=== PATIENT | male | born 1965 | race Caucasian/White ===

== ENCOUNTER 2017-01-21 10:15 | Day surgery (SDC) | payer BC ==
[~2017-01-21 10:15] MED LIST: Lactated Ringers 1,000 ML IV SCH; Propofol 200 MG/20 ML SDV ONE; Sodium Chloride 0.9% 5 ML Syringe FLUSH PRN
--- NOTE | 2017-01-21 11:15 | PCM.PN ---
- General Info Date of Service: 01/21/17 - Review of Systems Systems Review Comment:: 51 y/o male with history of rectal bleeding here for his initial colonoscopy. He is medically stable to proceed. Risks such as but not limited to bleeding and GI injury discussed and he agrees to proceed. - Patient Data Vitals - Most Recent: Last Vital Signs Temp 98.2 F 01/21/17 10:29 Pulse 84 01/21/17 10:29 Resp 18 01/21/17 10:29 BP 120/75 01/21/17 10:29 Pulse Ox 95 01/21/17 10:29 Weight - Most Recent: 127.006 kg Med Orders - Current: Current Medications Lactated Ringer's (Ringers, Lactated) 1,000 mls @ 50 mls/hr IV ASDIRECTED RICARDO Last Admin: 01/21/17 10:39 Dose: 50 mls/hr Sodium Chloride (Syrex Flush) 5 ml FLUSH Q8HR PRN PRN Reason: Keep Vein Open Discontinued Medications Propofol (Diprivan 20 Ml) Confirm Administered Dose 400 mg .ROUTE .STK-MED ONE Stop: 01/21/17 09:58 - Problem List Review Problem List Initiated/Reviewed/Updated: Yes - My Orders Last 24 Hours: My Active Orders 01/21/17 10:00 Patient to Empty Bladder [RC] ASDIRECTED Peripheral IV Care [RC] . DIRECTED Verify Patient Consent Obtain [RC] ASDIRECTED Lactated Ringers [Ringers, Lactated] 1,000 ml IV ASDIRECTED Sodium Chloride 0.9% [Syrex Flush] 5 ml FLUSH Q8HR PRN Peripheral IV Insertion Adult [OM.PC] Routine 01/21/17 Breakfast Nothing Per Oral Diet [DIET] - Assessment Assessment:: Rectal Bleeding - Plan Plan:: Colonoscopy
[2017-01-21] MEDS ORDERED: Propofol 200 MG/20 ML SDV IV ONE (11:19)
[2017-01-21 12:10] VITALS: BP 126/87
--- NOTE | 2017-01-21 12:12 | PCM.OPNOTE ---
- General Post-Op/Procedure Note Date of Surgery/Procedure: 01/21/17 Operative Procedure(s): Colonoscopy Findings: Inflamed Hemorrhoids Pre Op Diagnosis: Rectal bleeding Post-Op Diagnosis: Hemorhoids Anesthesia Technique: MAC Primary Surgeon: Harris Hurd Pathology: none Output, Urine Amount: 0 EBL in mLs: 0 Complications: None Condition: Good Free Text/Narrative:: Intake & Output 01/20/17 01/21/17 01/21/17 22:59 06:59 14:59 Intake Total 100 Balance 100
--- NOTE | 2017-01-21 22:55 | OR ---
DATE OF SURGERY: 01/21/2017 SURGEON: Harris Hurd MD REFERRING PROVIDER: SHAMIKA Scott PREOPERATIVE DIAGNOSIS: Rectal bleeding. POSTOPERATIVE DIAGNOSIS: Hemorrhoids. OPERATION PERFORMED: Colonoscopy. INDICATIONS FOR SURGERY: This 51-year-old male is referred for his first colonoscopy. He has been having some symptoms of rectal bleeding. FINDINGS: The patient has moderate-sized internal hemorrhoids with some visible inflammation, although no active bleeding at this time. He has a few moderate external hemorrhoids as well which do not appear to be acutely inflamed. The remainder of his colon appears normal. No polyps or other abnormalities are seen. Mucosa appears healthy. DESCRIPTION OF PROCEDURE: The patient was taken to the operating room. He was given intravenous sedation and with him in the left lateral decubitus position, digital rectal exam was performed showing no rectal masses. The Olympus colonoscope was inserted into the rectum. Retroflexed examination of the rectal canal was performed. The scope was then carefully advanced under direct visualization through the entire length of the colon until the cecum is reached. Cecal acquisition was confirmed by noting the normal internal cecal anatomy including the appendiceal orifice and ileocecal valve. After examining the cecum, the scope was slowly withdrawn, sequentially re-examining the colonic segments until the entire colon and rectum had been fully examined. The scope was then removed, and the patient was taken from the operating room in satisfactory condition. ESTIMATED BLOOD LOSS: Zero. COMPLICATIONS: None. PROGNOSIS: Good. /[id number]/MODL
== END 2017-01-21 13:00 | disposition home or self-care (01) ==
LOC: KA.SDS 10:15
PROVIDERS: ATTEND Surgery
DX: K64.8 Other hemorrhoids (principal); K64.4 Residual hemorrhoidal skin tags
CPT/HCPCS: 45378; J2704; J7120